=== PATIENT | male | born 1980 | race African-American/Black ===

== ENCOUNTER 2018-06-15 14:58 | Emergency (ER) | payer SELFPAY ==
[~2018-06-15] VITALS: Ht 175.3 cm; Wt 84.0 kg
[2018-06-15 15:00] VITALS: BP 158/97
[2018-06-15] MEDS ORDERED: KETOROLAC 30 MG/1 ML IM ONE (15:30)
[2018-06-15] MEDS ORDERED: METHOCARBAMOL 750 MG TABLET PO ONE (15:30)
[2018-06-15] MEDS ORDERED: HYDROcodone/APAP 5/325 TABLET ONE (15:36)
[2018-06-15] MEDS ORDERED: METHOCARBAMOL 750 MG TABLET ONE (15:43)
[2018-06-15] MEDS ORDERED: KETOROLAC 30 MG/1 ML ONE (15:44)
[2018-06-15] MEDS ORDERED: HYDROcodone/APAP 5/325 TABLET PO ONE (16:00)
== END 2018-06-15 16:10 | disposition home or self-care (01) ==
LOC: ED 15:45
DX: S16.1XXA Strain of muscle, fascia and tendon at neck level, initial encounter (principal); F17.200 Nicotine dependence, unspecified, uncomplicated; X50.3XXA Overexertion from repetitive movements, initial encounter; Y93.89 Activity, other specified; Y99.8 Other external cause status; Y92.69 Other specified industrial and construction area as the place of occurrence of the external cause
CPT/HCPCS: 72050; 96372; 99284; J1885

== ENCOUNTER 2018-11-30 03:17 | Emergency (ER) | payer OTHER ==
[~2018-11-30] VITALS: Ht 175.3 cm; Wt 78.9 kg
[2018-11-30 03:18] VITALS: BP 163/90
--- NOTE | 2018-11-30 03:31 | NUR ---
FANI GARCIA IN TO EVAL PT. AND DISCUSS POC.
[2018-11-30] MEDS ORDERED: ACETAMINOPHEN 325 MG TABLET ONE (04:27)
[2018-11-30] MEDS ORDERED: ACETAMINOPHEN 325 MG TABLET PO ONE (04:30)
== END 2018-11-30 04:39 | disposition home or self-care (01) ==
LOC: ED 04:21
DX: S92.425A Nondisplaced fracture of distal phalanx of left great toe, initial encounter for closed fracture (principal); W22.8XXA Striking against or struck by other objects, initial encounter; Y93.89 Activity, other specified; Y92.009 Unspecified place in unspecified non-institutional (private) residence as the place of occurrence of the external cause; Y99.8 Other external cause status
CPT/HCPCS: 99283